=== PATIENT | female | born 1990 | race Caucasian/White ===

== ENCOUNTER 2017-11-30 22:33 | Emergency (ER) | payer BC, OTHER ==
[2017-12-01 01:08] LABS: Absolute Lymphocytes (CBC) 3.1 K/uL (0.7-4.9); Absolute Monocytes 0.6 K/uL (0.1-1.3); Absolute Neutrophil 4.6 K/uL (1.8-8.0); Basophils % 0.5 % (0-1.3); Eosinophils % 3.2 % (0-4.4); Hematocrit 43.8 % (36.0-45.0); Lymphocytes % 36.2 % (15.3-44.8); MCH 27.3 pg (27.0-35.0); MCV 83.9 fL (80-100); MPV 10.7 fL (7.6-11.3); Monocytes % 6.5 % (3.3-12.3); RBC Red Blood Cell Count 5.21 M/uL (3.86-4.86)
[2017-12-01 01:16] LABS: Potassium 3.7 mEq/L (3.6-5.0)
[2017-12-01 01:22] LABS: Albumin 4.1 g/dL (3.2-5.5); Bilirubin Direct 0.1 mg/dL (0-0.2); Bilirubin Total 1.3 mg/dL (0.3-1.2); Protein, Total 7.3 g/dL (6.0-8.3)
--- NOTE | 2017-12-01 01:32 | EDPHYS ---
Physician Documentation [facility] Name: Ruperto Pike Age: 27 yrs Sex: Female : 1990 Arrival Date: 11/30/2017 Time: 22:34 Bed 25 Private MD: ED Physician Chema Holman HPI: 12/01 00:07 This 27 yrs old Female presents to ER via Ambulatory with complaints of pkl Abdominal Cramping, Abdominal Pain. 00:07 The patient presents with abdominal pain in the epigastric area. Onset: The pkl symptoms/episode began/occurred yesterday. The symptoms do not radiate. Associated signs and symptoms: none. 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 - Social history:: Smoking status: Smoking status: Patient/guardian denies using tobacco, Patient/guardian denies using alcohol, street drugs. ROS: 12/01 00:07 Eyes: Negative for injury, pain, redness, and discharge, ENT: Negative for injury, pkl pain, and discharge, Neck: Negative for injury, pain, and swelling, Cardiovascular: Negative for chest pain, palpitations, and edema, Respiratory: Negative for shortness of breath, cough, wheezing, and pleuritic chest pain. Abdomen/GI: Positive for abdominal pain, of the epigastric area. Back: Negative for acute changes. : Negative for urinary symptoms. MS/extremity: Negative for acute changes. Skin: Negative for rash. Neuro: Negative for altered mental status. Exam: 00:07 Head/Face: Normocephalic, atraumatic. Eyes: Pupils equal round and reactive to light, pkl extra-ocular motions intact. Lids and lashes normal. Conjunctiva and sclera are non-icteric and not injected. Cornea within normal limits. Periorbital areas with no swelling, redness, or edema. ENT: Nares patent. No nasal discharge, no septal abnormalities noted. Tympanic membranes are normal and external auditory canals are clear. Oropharynx with no redness, swelling, or masses, exudates, or evidence of obstruction, uvula midline. Mucous membranes moist. Neck: Trachea midline, no thyromegaly or masses palpated, and no cervical lymphadenopathy. Supple, full range of motion without nuchal rigidity, or vertebral point tenderness. No Meningismus. Chest/axilla: Normal chest wall appearance and motion. Nontender with no deformity. No lesions are appreciated. Cardiovascular: Regular rate and rhythm with a normal S1 and S2. No gallops, murmurs, or rubs. Normal PMI, no JVD. No pulse deficits. Respiratory: Lungs have equal breath sounds bilaterally, clear to auscultation and percussion. No rales, rhonchi or wheezes noted. No increased work of breathing, no retractions or nasal flaring. 00:07 Abdomen/GI: Bowel sounds: normal, Palpation: soft, mild abdominal tenderness, in the epigastric area. 00:07 Back: Exam negative for acute changes. 00:07 : Exam negative for acute changes. 00:07 Musculoskeletal/extremity: Exam is negative for acute changes. 00:07 Skin: Exam negative for rash. 00:07 Neuro: Orientation: is normal, Mentation: is normal, Cranial nerves: grossly normal, Motor: is normal. Vital Signs: 11/30 23:24 BP 133 / 86; Pulse 64; Resp 18 S; Temp 98.8(TE); Pulse Ox 99% on R/A; Weight 86.18 kg bb (R); Height 5 ft. 1 in. (154.94 cm) (R); Pain 8/10; 12/01 01:58 BP 125 / 68; Pulse 52; Resp 18; Pulse Ox 100% ; tl3 11/30 23:24 Body Mass Index 35.90 (86.18 kg, 154.94 cm) bb MDM: 00:00 Patient medically screened. pkl 01:30 Data reviewed: vital signs, nurses notes, lab test result(s). pkl 01:32 ED course: Patient feeling. Asymptomatic. Discussed lab. results. Advised to follow up pkl with mutton puncher for further evaluations. 12/01 00:06 Order name: Amylase, Serum; Complete Time: 01:26 pkl 12/01 00:06 Order name: Basic Metabolic Panel; Complete Time: : pkl 12/01 00:06 Order name: CBC with Diff; Complete Time: pkl 04/02 00:06 Order name: Creatinine for Radiology; Complete Time: pkl 12/01 00:06 Order name: Hepatic Function; Complete Time: pkl 12/01 00:06 Order name: Lipase; Complete Time: pkl 12/01 00:06 Order name: Urine Microscopic Only pkl 12/01 00:06 Order name: IV Saline Lock pkl 12/01 00:06 Order name: Labs collected and sent pkl 12/01 00:06 Order name: Urine Dipstick-Ancillary (obtain specimen) pkl 12/01 01:37 Order name: Urine Dipstick--Ancillary (enter results) rg2 12/01 01:37 Order name: Urine --Ancillary (enter results) rg2 Administered Medications: 02:01 Not Given (pt discharged prior to seeing order): NS 0.9% 500 ml IV at bolus once tl3 Disposition: 12/01/17 01:31 Discharged to Home. Impression: Abdominal pain. Elevated liver functions. - Condition is Stable. - Prescriptions for Ultram 50 mg Oral Tablet - take 1 tablet by ORAL route every 8 hours As needed; 20 tablet. - Medication Reconciliation Form, Thank You Letter, Antibiotic Education, Prescription Opioid Use form. - Follow up: Kat Borges MD; When: 2 - 3 days; Reason: Re-evaluation by your physician. - Problem is new. - Symptoms are resolved. Signatures: Dispatcher [employer] Chema Juares MD MD pkJojo Clement RN RN bb Lowrey, Tammy, RN RN tl3
--- NOTE | 2017-12-01 01:32 | ER ---
Nurse's Notes [facility] Name: Ruperto Pike Age: 27 yrs Sex: Female : 1990 Arrival Date: 11/30/2017 Time: 22:34 Bed 25 Private MD: Diagnosis: Abdominal pain. Elevated liver functions Presentation: 11/30 23:22 Presenting complaint: Patient states: she started having upper abdominal pain since bb yesterday pain is constant has nausea but denies vomiting or diarrhea pt is 4 weeks post . Transition of care: patient was not received from another setting of care. Onset of symptoms was November 29, 2017. Care prior to arrival: None. 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 - Social history:: Smoking status: Smoking status: Patient/guardian denies using tobacco, Patient/guardian denies using alcohol, street drugs. Screenin:59 Abuse screen: Denies threats or abuse. Nutritional screening: No deficits noted. tl3 Tuberculosis screening: No symptoms or risk factors identified. Fall Risk None identified. Assessment: 23:59 General: Appears in no apparent distress. comfortable, well groomed, well developed, tl3 well nourished, Behavior is calm, cooperative, appropriate for age. Pain: Complains of pain in abdomen. Neuro: Level of Consciousness is awake, alert, obeys commands, Oriented to person, place, time, situation, Appropriate for age. Cardiovascular: Heart tones S1 S2 present Capillary refill < 3 seconds in bilateral fingers. Respiratory: Airway is patent Trachea midline Breath sounds are clear bilaterally. GI: Bowel sounds present X 4 quads. Abdomen is tender to palpation in right upper quadrant and left upper quadrant. : No signs and/or symptoms were reported regarding the genitourinary system. EENT: No signs and/or symptoms were reported regarding the EENT system. Derm: No signs and/or symptoms reported regarding the dermatologic system. Musculoskeletal: No signs and/or symptoms reported regarding the musculoskeletal system. 12/01 00:01 Reassessment: pt is four weeks postpardum. tl3 01:32 Reassessment: Patient appears in no apparent distress at this time. No changes from tl3 previously documented assessment. Patient and/or family updated on plan of care and expected duration. Pain level reassessed. Patient is alert, oriented x 3, equal unlabored respirations, skin warm/dry/pink. pt resting in bed, Dr Holman discussing POC. Vital Signs: 11/30 23:24 BP 133 / 86; Pulse 64; Resp 18 S; Temp 98.8(TE); Pulse Ox 99% on R/A; Weight 86.18 kg bb (R); Height 5 ft. 1 in. (154.94 cm) (R); Pain 8/10; 12/01 01:58 BP 125 / 68; Pulse 52; Resp 18; Pulse Ox 100% ; tl3 04 23:24 Body Mass Index 35.90 (86.18 kg, 154.94 cm) bb ED Course: 11/30 22:34 Patient arrived in ED. am2 23:23 Triage completed. bb 23:24 Arm band placed on left wrist. Patient placed in waiting room, Patient notified of wait bb time. 23:59 Rochelle Bolden, BALDEMAR is Primary Nurse. tl3 23:59 Patient has correct armband on for positive identification. tl3 23:59 No provider procedures requiring assistance completed. tl3 04 00:00 Chema Holman MD is Attending Physician. pkl 01:30 Kat Borges MD is Referral Physician. pkl 01:30 IV discontinued, intact, bleeding controlled, No redness/swelling at site. Pressure tl3 dressing applied. Administered Medications: 02:01 Not Given (pt discharged prior to seeing order): NS 0.9% 500 ml IV at bolus once tl3 Outcome: 01:31 Discharge ordered by . pkl 01:59 Discharged to home ambulatory. tl3 01:59 Condition: good 01:59 Discharge instructions given to patient, Instructed on discharge instructions, follow up and referral plans. medication usage, Demonstrated understanding of instructions, follow-up care, medications, Prescriptions given X 1. 02:03 Patient left the ED. tl3 Signatures: Chema Holman MD MD pkl Ballard, Brenda, RN RN Jaylyn Gamble am2 Rochelle Bolden, RN RN tl3
[2017-12-01 03:42] LABS: Urine Blood NEGATIVE (NEG); Urine Glucose NEGATIVE (NEG); Urine Protein NEGATIVE (NEG); Urine pH 5.5 (5.0-7.0)
[2017-12-01 03:45] LABS: Urine Bacteria <20 /HPF (<20); Urine Culture Reflex Order NOT NEEDED; Urine RBC <5 /HPF (NONE SEEN)
== END 2017-12-01 02:03 | disposition home or self-care (01) ==
LOC: ER 22:33
DX: R79.89 Other specified abnormal findings of blood chemistry (principal)
CPT/HCPCS: 36415; 80048; 80076; 81003; 81015; 81025; 82150; 83690; 85025; 99282

== ENCOUNTER 2017-12-02 01:06 | Observation (INO) | payer BC ==
[2017-12-02] MEDS ORDERED: ONDANSETRON 4 MG/2 ML VIAL ONE (01:56)
[2017-12-02] MEDS ORDERED: MEPERIDINE HCL 50 MG/ML AMP ONE (01:56)
[2017-12-02] MEDS ORDERED: NA CHLORIDE 0.9% 1,000 ML ONE (01:56)
[2017-12-02 02:04] LABS: Absolute Lymphocytes (CBC) 3.9 K/uL (0.7-4.9); Absolute Monocytes 0.5 K/uL (0.1-1.3); Absolute Neutrophil 3.4 K/uL (1.8-8.0); Basophils % 0.6 % (0-1.3); Hematocrit 45.7 % (36.0-45.0); Lymphocytes % 47.6 % (15.3-44.8); MCH 27.9 pg (27.0-35.0); MCV 83.3 fL (80-100); MPV 10.7 fL (7.6-11.3); Monocytes % 6.6 % (3.3-12.3); RBC Red Blood Cell Count 5.48 M/uL (3.86-4.86)
[2017-12-02 02:11] LABS: Bicarbonate 26 mEq/L (21-31); Glucose Level 95 mg/dL (65-120); Lipase 29 U/L (22-51); Potassium 3.9 mEq/L (3.6-5.0); Sodium Level 137 mEq/L (135-145)
[2017-12-02 02:17] LABS: ALT/SGPT 110 IU/L (10-60); AST/SGOT 58 IU/L (10-42); Albumin 4.3 g/dL (3.2-5.5); Alkaline Phosphatase 83 IU/L (42-121); Amylase Level 57 U/L (28-100); BUN Blood Urea Nitrogen 14 mg/dL (6-20); Bilirubin Direct 0.2 mg/dL (0-0.2); Bilirubin Total 1.1 mg/dL (0.3-1.2); Glomerular Filtration Rate > 90 mL/min (=/>90); Protein, Total 7.7 g/dL (6.0-8.3)
[2017-12-02] MEDS ORDERED: MORPHINE 4 MG/ML SYR ONE (02:42)
[2017-12-02 04:14] LABS: Urine Bacteria <20 /HPF (<20); Urine RBC NONE SEEN /HPF (NONE SEEN)
[2017-12-02 04:15] LABS: Urine Culture Reflex Order NOT NEEDED
--- NOTE | 2017-12-02 04:39 | EDPHYS ---
Physician Documentation [facility] Name: Ruperto Pike Age: 27 yrs Sex: Female : 1990 Arrival Date: 12/02/2017 Time: 01:06 Bed 13 Private MD: ED Physician Chema Holman HPI: 12/02 01:46 This 27 yrs old Female presents to ER via Ambulatory with complaints of pkl Abdominal Pain. 01:46 The patient presents with abdominal pain in the right upper quadrant. Onset: The pkl symptoms/episode began/occurred 2 day(s) ago. The symptoms do not radiate. Associated signs and symptoms: Pertinent positives: nausea. The patient has been recently seen at the [facility] Emergency Department, yesterday, for similar complaints. 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 - Social history:: Smoking status: Patient uses tobacco products, 2-3 cigs a day, Patient uses alcohol, occasionally. Patient/guardian denies using street drugs. ROS: 01:46 Eyes: Negative for injury, pain, redness, and discharge, ENT: Negative for injury, pkl pain, and discharge, Neck: Negative for injury, pain, and swelling, Cardiovascular: Negative for chest pain, palpitations, and edema, Respiratory: Negative for shortness of breath, cough, wheezing, and pleuritic chest pain. 01:46 Abdomen/GI: Positive for abdominal pain, of the right upper quadrant. 01:46 Back: Negative for acute changes. 01:46 : Negative for urinary symptoms. 01:46 MS/extremity: Negative for acute changes. 01:46 Skin: Negative for rash. 01:46 Neuro: Negative for altered mental status. Exam: 01:46 Head/Face: Normocephalic, atraumatic. Eyes: Pupils equal round and reactive to light, pkl extra-ocular motions intact. Lids and lashes normal. Conjunctiva and sclera are non-icteric and not injected. Cornea within normal limits. Periorbital areas with no swelling, redness, or edema. ENT: Nares patent. No nasal discharge, no septal abnormalities noted. Tympanic membranes are normal and external auditory canals are clear. Oropharynx with no redness, swelling, or masses, exudates, or evidence of obstruction, uvula midline. Mucous membranes moist. Neck: Trachea midline, no thyromegaly or masses palpated, and no cervical lymphadenopathy. Supple, full range of motion without nuchal rigidity, or vertebral point tenderness. No Meningismus. Chest/axilla: Normal chest wall appearance and motion. Nontender with no deformity. No lesions are appreciated. Cardiovascular: Regular rate and rhythm with a normal S1 and S2. No gallops, murmurs, or rubs. Normal PMI, no JVD. No pulse deficits. Respiratory: Lungs have equal breath sounds bilaterally, clear to auscultation and percussion. No rales, rhonchi or wheezes noted. No increased work of breathing, no retractions or nasal flaring. 01:46 Abdomen/GI: Bowel sounds: normal, Palpation: soft, mild abdominal tenderness, in the right upper quadrant. 01:46 Back: Exam negative for acute changes. 01:46 : Exam negative for acute changes. 01:46 Musculoskeletal/extremity: Exam is negative for acute changes. 01:46 Skin: Exam negative for rash. 01:46 Neuro: Orientation: is normal, Mentation: is normal, Memory: is normal, Cranial nerves: grossly normal, Cerebellar function: is grossly normal, Motor: is normal, Sensation: is normal, Gait: is steady. Vital Signs: 01:10 BP 147 / 107; Pulse 80; Resp 18; Temp 99.0(O); Pulse Ox 100% on R/A; Weight 86.18 kg fc (R); Height 5 ft. 1 in. (154.94 cm) (R); Pain 10/10; 02:26 BP 134 / 89; Pulse 58; Resp 18; Pulse Ox 97% on R/A; ao 03:38 BP 121 / 88; Pulse 66; Resp 16; Pulse Ox 99% on R/A; Pain 6/10; mt 05:07 BP 120 / 81; Pulse 62; Resp 16; Pulse Ox 99% on R/A; mt 06:28 BP 115 / 84; Pulse 62; Resp 18; Pulse Ox 97% on R/A; mt 07:15 BP 98 / 54; Pulse 54; Resp 17; Pulse Ox 98% on R/A; Pain 0/10; rb1 01:10 Body Mass Index 35.90 (86.18 kg, 154.94 cm) fc MDM: 01:31 Patient medically screened. pkl 04:36 Data reviewed: vital signs, nurses notes, lab test result(s), radiologic studies, CT pkl scan. 12/02 01:28 Order name: Urine Microscopic Only; Complete Time: 06:58 em1 12/02 01:57 Order name: Basic Metabolic Panel; Complete Time: 02:32 EDMS 12/02 01:57 Order name: Liver (Hepatic) Function; Complete Time: 02:32 EDMS 12/02 01:57 Order name: Amylase Level; Complete Time: 02:32 EDMS 12/02 01:57 Order name: Lipase; Complete Time: 02:32 EDMS 12/02 01:57 Order name: CBC with Automated Diff; Complete Time: 02:07 EDMS 12/02 04:25 Order name: Urine Dipstick--Ancillary (enter results); Complete Time: 06:58 em1 12/02 01:28 Order name: IV Saline Lock; Complete Time: 01:30 em1 12/02 01:28 Order name: Labs collected and sent; Complete Time: 01:30 em1 12/02 01:28 Order name: Urine Dipstick-Ancillary (obtain specimen); Complete Time: 03:44 em1 12/02 02:10 Order name: Abdomen EDMS Administered Medications: 01:45 Drug: NS 0.9% 1000 ml Route: IV; Rate: 1000 ml; Site: left antecubital; fc 06:56 Follow up: IV Status: Completed infusion ao 01:45 Drug: Demerol 50 mg Route: IVP; Site: left antecubital; fc 02:25 Follow up: Response: No adverse reaction ao 01:45 Drug: Zofran 4 mg Route: IVP; Site: left antecubital; fc 02:24 Follow up: Response: No adverse reaction ao 02:24 Drug: morphine 4 mg Route: IVP; Site: left antecubital; ao 03:43 Follow up: Response: No adverse reaction ao Disposition: 12/02/17 04:38 Hospitalization ordered by Anuradha Haile for Observation. Preliminary diagnosis is Acute cholecystitis. Elevated liver functions. - Bed requested for Telemetry/MedSurg (observation). - Status is Observation. rb1 - Condition is Stable. - Problem is new. - Symptoms have improved. UTI on Admission? No Signatures: Dispatcher [employer] EDMS Yola Guerrero, RN RN Chema Pedro MD MD pkl Chretien, Felicia, RN RN Donnell Muhammad em1 Narcisa Saini RN RN rb1 Vidal Malik RN RN ao Corrections: (The following items were deleted from the chart) 02:05 01:57 Creatinine (Radiology Only) ordered. EDMS EDMS 02:56 02:28 Abdomen Pelvis W Con+CT.RAD.BRZ ordered. EDMS EDMS 03:10 02:28 AMYLASE, SERUM+C.LAB.BRZ ordered. EDMS EDMS 03:10 02:28 BASIC METABOLIC PANEL+C.LAB.BRZ ordered. EDMS EDMS 03:10 02:28 CBC+H.LAB.BRZ ordered. EDMS EDMS 03:10 02:28 Creatinine for Radiology+C.LAB.BRZ ordered. EDMS EDMS 03:10 02:28 HEPATIC FUNCTION+C.LAB.BRZ ordered. EDMS EDMS 03:10 02:28 LIPASE+C.LAB.BRZ ordered. EDMS EDMS
--- NOTE | 2017-12-02 04:39 | ER ---
Nurse's Notes [facility] Name: Ruperto Pike Age: 27 yrs Sex: Female : 1990 Arrival Date: 12/02/2017 Time: 01:06 Bed 13 Private MD: Diagnosis: Acute cholecystitis. Elevated liver functions Presentation: 12/02 01:10 Acuity: VICKI 3 fc 01:10 Presenting complaint: Patient states: that she was seen last night for abd pain and was fc told that she might high gallstones. Did have elevated liver enz and was told to follow up with GI dr. Went home with no pain but is now having severe upper right quad abd pain and nausea. Transition of care: patient was not received from another setting of care. Onset of symptoms was December 02, 2017. Care prior to arrival: None. 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 - Social history:: Smoking status: Patient uses tobacco products, 2-3 cigs a day, Patient uses alcohol, occasionally. Patient/guardian denies using street drugs. Screenin:30 Abuse screen: Denies threats or abuse. Nutritional screening: No deficits noted. fc Tuberculosis screening: No symptoms or risk factors identified. Fall Risk None identified. Assessment: 01:35 General: Appears in no apparent distress. uncomfortable, Behavior is calm, cooperative, ao appropriate for age. Pain: Complains of pain in abdomen. Neuro: Level of Consciousness is awake, alert, obeys commands, Oriented to person, place, time, situation, Appropriate for age Moves all extremities. Gait is steady, Speech is normal, Facial symmetry appears normal, Pupils are PERRLA. Cardiovascular: Heart tones S1 S2 Capillary refill < 3 seconds Patient's skin is warm and dry. Respiratory: Airway is patent Respiratory effort is even, unlabored, Respiratory pattern is regular, symmetrical, Breath sounds are clear bilaterally. GI: Bowel sounds present X 4 quads. Abd is soft and non tender X 4 quads. Reports nausea, Pain is 8 out of 10 on a pain scale. vomiting. : No signs and/or symptoms were reported regarding the genitourinary system. EENT: No signs and/or symptoms were reported regarding the EENT system. Derm: No signs and/or symptoms reported regarding the dermatologic system. Musculoskeletal: No signs and/or symptoms reported regarding the musculoskeletal system. 02:16 Reassessment: Patient appears in no apparent distress at this time. Patient and/or ao family updated on plan of care and expected duration. Pain level reassessed. Patient is alert, oriented x 3, equal unlabored respirations, skin warm/dry/pink. 03:41 Reassessment: Patient appears in no apparent distress at this time. Patient and/or ao family updated on plan of care and expected duration. Pain level reassessed. Patient is alert, oriented x 3, equal unlabored respirations, skin warm/dry/pink. Waiting on dispo. 04:27 Reassessment: Patient appears in no apparent distress at this time. Patient and/or ao family updated on plan of care and expected duration. Pain level reassessed. Patient is alert, oriented x 3, equal unlabored respirations, skin warm/dry/pink. 05:44 Reassessment: Patient appears in no apparent distress at this time. Patient and/or ao family updated on plan of care and expected duration. Pain level reassessed. Patient is alert, oriented x 3, equal unlabored respirations, skin warm/dry/pink. Patient to be admitted to the hospital. patient agree with POC. 06:45 Reassessment: Patient appears in no apparent distress at this time. Patient and/or ao family updated on plan of care and expected duration. Pain level reassessed. Patient is alert, oriented x 3, equal unlabored respirations, skin warm/dry/pink. Patient to be taken to her room. Patient was not able to go to her room due to shift change. Patient will be taken to a hospital room after shift change. 07:00 General: Appears in no apparent distress. comfortable, Behavior is calm, cooperative. rb1 Pain: Denies pain. Neuro: Level of Consciousness is awake, alert, obeys commands, Oriented to person, place, time, situation. Cardiovascular: Capillary refill < 3 seconds is brisk in bilateral fingers. Respiratory: Airway is patent Respiratory effort is even, unlabored, Respiratory pattern is regular, symmetrical. Derm: Skin is pink, warm \T\ dry. 07:30 Reassessment: Called 4th floor to give report, was told that the nurse was still rb1 getting report from the night nurse to call back in about 10 minutes. 07:40 Reassessment: Called report to BALDEMAR Bey. Information on the SBAR was given. All rb1 questions asked and answered. Vital Signs: 01:10 BP 147 / 107; Pulse 80; Resp 18; Temp 99.0(O); Pulse Ox 100% on R/A; Weight 86.18 kg fc (R); Height 5 ft. 1 in. (154.94 cm) (R); Pain 10/10; 02:26 BP 134 / 89; Pulse 58; Resp 18; Pulse Ox 97% on R/A; ao 03:38 BP 121 / 88; Pulse 66; Resp 16; Pulse Ox 99% on R/A; Pain 6/10; mt 05:07 BP 120 / 81; Pulse 62; Resp 16; Pulse Ox 99% on R/A; mt 06:28 BP 115 / 84; Pulse 62; Resp 18; Pulse Ox 97% on R/A; mt 07:15 BP 98 / 54; Pulse 54; Resp 17; Pulse Ox 98% on R/A; Pain 0/10; rb1 01:10 Body Mass Index 35.90 (86.18 kg, 154.94 cm) fc ED Course: 01:06 Patient arrived in ED. al2 01:10 Arm band placed on Patient placed in an exam room, on a stretcher. fc 01:10 Patient has correct armband on for positive identification. Placed in gown. Bed in low fc position. Call light in reach. Pulse ox on. NIBP on. 01:20 Initial lab(s) drawn, by me, sent to lab. Inserted saline lock: 22 gauge in left fc antecubital area, using aseptic technique. Blood collected. 01:29 Triage completed. fc 01:31 Chema Holman MD is Attending Physician. pkl 01:36 Vidal Malik RN is Primary Nurse. ao 03:03 Abdomen In Process Unspecified. EDMS 04:36 Anuradha Haile MD is Hospitalizing Provider. pkl 07:06 Report given to BALDEMAR Brewster. ao 07:09 Narcisa Saini RN is Primary Nurse. rb1 07:48 No provider procedures requiring assistance completed. Patient admitted, IV remains in rb1 place. Administered Medications: 01:45 Drug: NS 0.9% 1000 ml Route: IV; Rate: 1000 ml; Site: left antecubital; fc 06:56 Follow up: IV Status: Completed infusion ao 01:45 Drug: Demerol 50 mg Route: IVP; Site: left antecubital; fc 02:25 Follow up: Response: No adverse reaction ao 01:45 Drug: Zofran 4 mg Route: IVP; Site: left antecubital; fc 02:24 Follow up: Response: No adverse reaction ao 02:24 Drug: morphine 4 mg Route: IVP; Site: left antecubital; ao 03:43 Follow up: Response: No adverse reaction ao Outcome: 04:38 Decision to Hospitalize by Provider. pkl 07:48 Patient left the ED. rb1 07:48 Admitted to Tele accompanied by nurse, family with patient, via wheelchair, room 407, rb1 with chart, Report called to BALDEMAR Bey 07:48 Condition: stable 07:48 Instructed on the need for admit. Signatures: Dispatcher [employer] EDMS Chema Holman MD MD pkl Tess Haywood RN RN Narcisa Saini RN RN [facility] Vidal Malik RN RN ao Thompson, Moriah mt Love, Angelica al2 Corrections: (The following items were deleted from the chart) 08:11 08:10 Patient left the ED. rb1 rb1
[2017-12-02 05:07] LABS: Urine Blood TRACE (NEG); Urine Glucose NEGATIVE (NEG); Urine Protein NEGATIVE (NEG); Urine Specific Gravity 1.015 (1.005-1.030)
--- NOTE | 2017-12-02 05:11 | P.HP ---
Certification for Inpatient Patient admitted to: Observation With expected LOS: <2 Midnights Practitioner: I am a practitioner with admitting privileges, knowledge of patient current condition, hospital course, and medical plan of care. Services: Services provided to patient in accordance with Admission requirements found in Title 42 Section 412.3 of the Code of Federal Regulations Patient History Date of Service: 12/02/17 Reason for admission: acute cholecystitis History of Present Illness: Ms Pike is a 27 years old woman who just delivery a baby 4 weeks ago, came to ED yesterday morning complaining of right upper quadrant abdominal pain. She describe the pain as colicky, comes and go, 10/10 of intensity, denied nausea or vomiting, no fever. WBC were WNL, but abnormal transaminases, afebrile, and she was sent home advised to see a GI specialist as outpatient. However, early this morning, the pain came back, associated with nausea, and is radiated to her back. She is still afebrile, WBC remain normal. At this time, she had a CT abd/pelvis remarkable for distended gallblader and pericholecystic fluid. No stones or distended ducts. Transaminases remain elevated. Allergies No Known Drug Allergies Allergy (Unverified 05/12/15 05:51) Unknown No Known Allergies Allergy (Uncoded 12/01/17 02:06) Unknown - Past Medical/Surgical History Past Medical History: Reviewed- Non-Contributory Past Surgical History: Reviewed- Non-Contributory - Social History Smoking Status: Light Tobacco smoker (1-9 cigarettes/day) Counseled patient to stop smoking for: less than 10 minutes Alcohol use: No CD- Drugs: No Caffeine use: Yes Place of Residence: Home Review of Systems 10-point ROS is otherwise unremarkable Physical Examination - Physical Exam General: Alert, Mild distress (due to abdominal pain.) HEENT: Atraumatic, PERRLA, Mucous membr. moist/pink, EOMI, Sclerae nonicteric Neck: Supple, 2+ carotid pulse no bruit, No LAD, Without JVD or thyroid abnormality Respiratory: Clear to auscultation bilaterally, Normal air movement Cardiovascular: Regular rate/rhythm, Normal S1 S2 Gastrointestinal: Normal bowel sounds, Tenderness (RUQ) Musculoskeletal: No tenderness Integumentary: No rashes Neurological: Normal speech, Normal strength at 5/5 x4 extr, Normal tone, Normal affect Lymphatics: No axilla or inguinal lymphadenopathy - Studies Laboratory Data (last 24 hrs) 12/02/17 01:30: Creatinine Cancelled 12/02/17 01:30: WBC 8.1, Hgb 15.3 H, Hct 45.7 H, Plt Count 220 12/02/17 01:30: Sodium 137, Potassium 3.9, BUN 14, Creatinine 0.75, Glucose 95, Total Bilirubin 1.1, AST 58 H, ALT 110 H, Alkaline Phosphatase 83, Amylase 57, Lipase 29 12/02/17 01:28: Creatinine Cancelled 12/02/17 01:28: WBC Cancelled, Hgb Cancelled, Hct Cancelled, Plt Count Cancelled 12/02/17 01:28: Sodium Cancelled, Potassium Cancelled, BUN Cancelled, Creatinine Cancelled, Glucose Cancelled, Total Bilirubin Cancelled, AST Cancelled, ALT Cancelled, Alkaline Phosphatase Cancelled, Amylase Cancelled, Lipase Cancelled Assessment and Plan - Problems (Diagnosis) (1) Acute cholecystitis Current Visit: Yes Status: Acute - Plan The patient will be admitted to the hospital due to acute cholecysitis. No gallstones noted on CT scan. Will order Abd US for better assessment, start empiric IV abx, consult Dr Jean, eventually will get GI specialist involved , depending on US result. Keep NPO. - Advance Directives Does patient have a Living Will: No Does patient have a Durable POA for Healthcare: No - Code Status/Comfort Care Code Status Assessed: Yes Code Status: Full Code
[2017-12-02] MEDS ORDERED: ACETAMINOPHEN 500 MG TAB PO PRN (07:40)
[2017-12-02] MEDS ORDERED: ONDANSETRON 4 MG/2 ML VIAL IV PRN (07:40)
--- NOTE | 2017-12-02 08:45 | RAD REPORT ---
EXAM DESCRIPTION: CT - Abdomen Pelvis W Contrast - 12/02/2017 3:03 am CLINICAL HISTORY: Abdominal pain with nausea. Right upper quadrant pain COMPARISON: 2013 TECHNIQUE: Computed axial tomography of the abdomen pelvis was obtained. 100 cc Isovue-300 was admin istered intravenously. Oral contrast was not requested which limits evaluation of bowel.A preliminary report was generated by [employer] and reviewed prior to this dictation All CT scans are performed using dose optimization technique as appropriate and may include automated exposure control or mA/KV adjustment according to patient size. FINDINGS: The liver, spleen, pancreas, adrenal and kidneys appear unremarkable. There is no evidence of diverticulitis. The appendix appears normal. The gallbladder is distended with a small amount of pericholecystic fluid. Gallstones are suspected. The stomach is mildly distended IMPRESSION: Cholelithiasis with acute cholecystitis
--- NOTE | 2017-12-02 09:46 | RAD REPORT ---
EXAM DESCRIPTION: US - Abdomen Exam Limited - 12/02/2017 8:30 am CLINICAL HISTORY: Abdominal pain. COMPARISON: Cat scan December 02 2017 FINDINGS: Multiple gallstones are present. The gallbladder wall is mildly thickened. Pericholecystic fluid is seen. The biliary tree is normal caliber. IMPRESSION: Cholelithiasis with cholecystitis
[2017-12-02] MEDS: NA CHLORIDE 0.9% 1,000 ML IV SCH ×2 (09:53→16:40)
[2017-12-02] MEDS: PIPER/TAZO/NS 3.375gm 3.375 GM/100 ML BAG IVPB SCH ×2 (09:57→16:40)
--- NOTE | 2017-12-02 16:43 | PN ---
Subjective: The patient seen and examined. Chart reviewed and case discussed with RN. The patient states that she is having some pain in her right upper quadrant. No nausea or vomiting. Review of Systems: Negative except as above. Medications: Reviewed. Physical Examination: Vital signs: Temperature 97.6, heart rate 62, blood pressure 154/60, respirations 17, O2 saturation 94% on room air. General: Awake, alert, oriented x3, in some mild distress due to pain. Obese female, BMI 35.9. CV: S1 and S2. No murmurs. Respiratory: Moving air well bilaterally. No wheezing. Abdomen: Soft, mild tenderness to palpation in the right upper quadrant. No rebound. No guarding. No rigidity. Bowel sounds positive. Extremities: No clubbing, cyanosis, or edema. Neuro: Nonfocal. Laboratory Data: Sodium 137, potassium 3.9, chloride 103, CO2 of 26, BUN 14, creatinine is 0.75, glu cose 95, total bilirubin 1.1, AST 58, ALT 110, amylase 57, lipase 29. WBC 8.1, H and H 15.3 and 45.7 , neutrophils 42.2. UA negative. Abdominal ultrasound shows cholelithiasis with cholecystitis. CT scan abdomen and pelvis with contrast shows cholelithiasis with acute cholecystitis personally review ed. Assessment And Plan: A 27-year-old female with; 1.Acute cholecystitis. We will continue on IV antibiotics and IV fluids, keep n.p.o., Dr. Jean on the case and the patient may need eventual cholecystectomy. 2.Obesity. Body mass index 35.9. 3.Elevated liver enzymes, likely fatty infiltration. 4.Gastrointestinal and deep venous thrombosis prophylaxis with PPI and SCDs. No chemical anticoagul ation due to possible surgery. SA/MODL Voice ID: [id number] Report ID: [id number]
--- NOTE | 2017-12-02 18:59 | RAD REPORT ---
EXAM DESCRIPTION: MRI - Cholangiogram - 12/02/2017 5:50 pm CLINICAL HISTORY: Elevated liver enzymes, abdominal pain COMPARISON: Ultrasound and CT studies December 02 FINDINGS: Large gallstone is identified. Cholecystitis findings were seen on the ultrasound and CT s tudy. No biliary tree dilatation. No duct stone, stricture, mass or significant biliary tree process. IMPRESSION: No biliary tree abnormality. Cholelithiasis.
--- NOTE | 2017-12-02 19:25 | CON ---
Date of Consultation: 12/02/2017 Reason For Service: Acute cholecystitis, symptomatic cholelithiasis, increased liver enzymes. History Of Present Illness: This is the case of a 27-year-old patient, troubled with abdominal pain since last night associated with nausea and bloating. She does remember any pain like this before. She does not remember any family member sick at home or any recent traveling out of the country. She denies any dysuria, hematuria, hematochezia, or melena. Allergies: NONE. Social History: She does not smoke. She does not drink alcohol. Past Medical History: None. She delivered a baby about 4 weeks ago with no complications and natura l vaginal delivery. Review of Systems: Constitutional: Denies any fever. Gastrointestinal: As above. Genitourinary: No dysuria. No hematuria. Skin: No ration. Physical Examination: General: The patient is awake and alert. HEENT: Pupils are equal and reactive, anicteric. Neck: Supple. Chest: Clear. Abdomen: Epigastric right upper quadrant pain with Lamar sign positive. Breasts: Deferred. Rectal: Deferred. Pelvic: Deferred. Extremities: Good capillary refill. Neuro: Cranial nerves 2-12 within grossly normal limits. Diagnostic Data: Abdominal ultrasound interpreted by Dr. Talavera as cholelithiasis with cholecystiti s with a gallbladder wall thickening and pericholecystic fluid, multiple gallstones. CAT scan of abd omen and pelvis, interpreted by Dr. Talavera as cholelithiasis with acute cholecystitis. Laboratory Data: Blood work is reviewed including elevated liver enzymes. Assessment: This is a case of a 27-year-old patient with acute cholecystitis, symptomatic cholelithi asis, and increased liver enzymes. We are going to get an MRCP on her to see the status of the commo n bile duct. This will be followed by laparoscopic possible open cholecystectomy with benefits, alte rnatives, and risks fully explained to the patient, which include but are not limited to infection, b leeding, damage to adjacent structures, anesthesia complication, choledocholithiasis, bile leak, panc reatitis, ME, and even . She also understands this may not relieve any symptoms. She might nee d more than one surgical intervention. This procedure will be depending on the MRCP results. ALEXA/FALLON Voice ID: [id number] Report ID: [id number]
[2017-12-02] MEDS: KETOROLAC 30 MG/ML INJ IV PRN (21:16)
[2017-12-03] MEDS: PIPER/TAZO/NS 3.375gm 3.375 GM/100 ML BAG IVPB SCH ×3 (00:39→16:42)
[2017-12-03] MEDS: NA CHLORIDE 0.9% 1,000 ML IV SCH ×3 (03:40→21:31)
[2017-12-03 05:01] LABS: Absolute Lymphocytes (CBC) 2.6 K/uL (0.7-4.9); Absolute Monocytes 0.4 K/uL (0.1-1.3); Absolute Neutrophil 2.9 K/uL (1.8-8.0); Basophils % 0.7 % (0-1.3); Eosinophils % 3.3 % (0-4.4); Hematocrit 39.4 % (36.0-45.0); Lymphocytes % 42.5 % (15.3-44.8); MCH 27.3 pg (27.0-35.0); MCV 83.9 fL (80-100); MPV 10.5 fL (7.6-11.3); RBC Red Blood Cell Count 4.69 M/uL (3.86-4.86)
[2017-12-03 05:40] LABS: Albumin 3.1 g/dL (3.2-5.5); Bilirubin Total 1.7 mg/dL (0.3-1.2); Magnesium 1.7 mg/dL (1.8-2.5); Potassium 3.6 mEq/L (3.6-5.0); Protein, Total 5.7 g/dL (6.0-8.3)
[2017-12-03] MEDS: KETOROLAC 30 MG/ML INJ IV PRN (06:18)
[2017-12-03] MEDS ORDERED: MAGNESIUM SULFATE 1 gm IVPB 1 GM/100 ML BAG IV ONE (08:06)
[2017-12-03] MEDS ORDERED: KCL 20 MEQ/100 mL IVPB 20 MEQ/100 ML BAG IV SCH (09:00)
[2017-12-03] MEDS ORDERED: Ringers Lactate 1,000 ML IV ONE ×2 (13:59→15:35)
--- NOTE | 2017-12-03 14:51 | P.BOP ---
Preoperative diagnosis: acute cholecystitis, symptomatic cholelithiasis, s/p MRCP Postoperative diagnosis: same Primary procedure: Laparoscopic cholecystectomy Estimated blood loss: <10cc Specimen: gb Findings: as above Anesthesia: General Complications: None Transferred to: Recovery Room
[2017-12-03] MEDS ORDERED: ROCURONIUM 50 MG/5 ML VIAL IV ONE (14:57)
[2017-12-03] MEDS ORDERED: PROPOFOL 200 MG/20 ML VIAL IV ONE (14:57)
[2017-12-03] MEDS ORDERED: FENTANYL CITR 100 MCG/2 ML ONE ×2 (14:57→15:24)
[2017-12-03] MEDS ORDERED: LIDOCAINE 1% MPF 5 ML VIAL ONE (14:58)
[2017-12-03] MEDS ORDERED: MIDAZOLAM HCL 2 MG/2 ML INJ ONE (14:58)
[2017-12-03] MEDS ORDERED: GLYCOPYRROLATE 0.2 MG/ML SYR ONE ×3 (15:13→15:47)
[2017-12-03] MEDS ORDERED: KETOROLAC 30 MG/ML INJ ONE (15:14)
[2017-12-03] MEDS ORDERED: ONDANSETRON 4 MG/2 ML VIAL ONE (15:14)
[2017-12-03] MEDS ORDERED: NEOSTIGMINE 1 MG/ML -5 ML SYRINGE ONE (15:22)
[2017-12-03] MEDS ORDERED: DEXAMETHASONE 10 MG/ML VIAL ONE (15:22)
[2017-12-03] MEDS ORDERED: MORPHINE 2 MG/ML SYR IV PRN (15:56)
[2017-12-03] MEDS ORDERED: HYDROCODONE/APAP 7.5/325 MG TAB PO PRN (15:56)
[2017-12-03] MEDS: HYDROCODONE/APAP 7.5/325 MG TAB PO PRN ×2 (16:42→21:47)
[2017-12-03] MEDS ORDERED: MORPHINE 4 MG/ML SYR IV PRN (19:00)
--- NOTE | 2017-12-04 01:41 | DS ---
Consultants: Dr. Jean. Procedures: On 12/03/2017, laparoscopic cholecystectomy. Admitting Diagnosis: Acute cholecystitis. Discharge Diagnoses: 1.Acute cholecystitis, status post laparoscopic cholecystectomy. 2.Obesity, body mass index 35.9. 3.Elevated liver enzymes, likely fatty infiltration versus cholelithiasis, improving. Hospital Course: The patient is a 27-year-old female, who came into the hospital with abdominal pain , nausea, and vomiting. The patient was found to have acute cholecystitis and cholelithiasis. Abdom inal ultrasound was done which showed some cholelithiasis. MRCP was done to rule out choledocholithi asis and was negative. Dr. Jean with General Surgery was consulted. The patient was taken for l aparoscopic cholecystectomy and tolerated the procedure well. The patient's diet was advanced. She did well postoperatively, was able to tolerate her diet, able to ambulate, and did not have any nause a or vomiting. The patient was then cleared for discharge from surgical standpoint. She was sent ho [place] in a stable condition. Activity: As tolerated. No lifting more than 10 pounds. No driving or operating heavy machinery wh ile on narcotics. Diet: Heart healthy. Medications: As per medication reconciliation list. Physical Examination: General: Awake, alert, oriented, no acute distress. CV: S1, S2. No murmurs. Respiratory: Moving air well bilaterally. No wheezing. Abdomen: Soft, nontender, and nondistended. Positive bowel sounds. Incisions are clean, dry, and i ntact. Extremities: No clubbing, cyanosis, or edema. Neurologic: Nonfocal. SA/MODL Voice ID: [id number] Report ID: [id number]
[2017-12-04] MEDS: PIPER/TAZO/NS 3.375gm 3.375 GM/100 ML BAG IVPB SCH (01:55)
[2017-12-04] MEDS: HYDROCODONE/APAP 7.5/325 MG TAB PO PRN ×2 (02:11→07:17)
--- NOTE | 2017-12-04 13:12 | P.PN ---
Date of Service: 12/04/17 Patient was discharged yesterday however did not leave until 4:00 a.m.
--- NOTE | 2017-12-08 23:49 | OP ---
Date of Procedure: 12/03/2017 Surgeon: Serg Jean MD Preoperative Diagnoses: Acute cholecystitis, symptomatic cholelithiasis, status post magnetic resona nce cholangiopancreatography, right upper quadrant pain. Postoperative Diagnoses: Acute cholecystitis, symptomatic cholelithiasis, status post magnetic reson ance cholangiopancreatography, right upper quadrant pain. Procedure: Laparoscopic cholecystectomy. Estimated Blood Loss: Less than 10 cc. Specimen: Gallbladder. Anesthesia: General plus local. Indications: This is the case of a female, who came to us with a right upper quadrant tenderness, fo und to have mild elevation of the LFTs so MRCP was done showing no stones in the common bile duct. T he patient also diagnosed with acute cholecystitis, symptomatic cholelithiasis. Fully explained the benefits, alternatives, and risks of laparoscopic, possible open cholecystectomy which include, but n ot limited to infection, bleeding, damage to adjacent structures anesthesia complication, choledochol ithiasis, bile leak, pancreatitis, GA, and even . She also understands this may not relieve any symptoms. She might need more than one surgical intervention. She understood. Signed a consent. Description Of Procedure: The patient was brought to the operating room, placed in supine position. Anesthesia was done without complication. Abdominal area was prepped and draped in a sterile fashio n. Marcaine 0.5% injected for local anesthetic, followed by sharp incision of the skin in the infrau mbilical region. Incision was carried down to fascia, which was opened under direct vision. Periton eum was encountered, opened under direct vision. Vicryl #1 placed inside the fascia. Larissa trocar was carefully introduced. No bleeding was obtained. After that, I placed 3 more trocars, 5 mm each one of them in the epigastric and right upper quadrant under direct visualization. The gallbladder l ooked distended so we used an Endo needle under direct visualization and deflated the gallbladder und er direct visualization. After that, needle was removed. A grasper was placed in the fundus of the gallbladder, another grasper in the infundibulum, retracted the gallbladder in the inferolateral fash ion exposing the triangle of Calot and obtaining critical view of safety. The cystic duct and cystic artery were clearly isolated free circumferentially and a connection between those and the gallbladd er was clearly identified. I proceeded to ligate them at least 3 clips proximal, 1 clip distal, liga tion in middle. Same was done with the cystic artery. No bile leak. No bleeding. The gallbladder was removed from liver using Bovie cautery and removed from abdominal cavity using an EndoCatch throu gh the umbilical incision. The area was inspected once again. Clips were intact. No bile leak. No bleeding. At that moment, I proceeded to remove the trocars under direct vision. Deflated pneumope ritoneum. No bleeding. Closed the fascia with #1 Vicryl. Irrigated subcutaneous tissue and closed that with 3-0 chromic and skin approximated. Sponge count and instrument counts were correct. The p atient tolerated the procedure well. The patient was sent to recovery in stable condition. ALEXA/FALLON Voice ID: [id number] Report ID: [id number]
== END 2017-12-04 07:38 | disposition home or self-care (01) ==
LOC: ER 01:06 → ERHOLD 04:43 → 4TH 07:46
PROVIDERS: ADMIT Internal Medicine; ATTEND Internal Medicine
PROC: 0FT44ZZ Resection of Gallbladder, Percutaneous Endoscopic Approach (ICD-10-PCS; principal; 2017-12-03 13:45)
DX: O99.63 Diseases of the digestive system complicating the puerperium (principal); K80.00 Calculus of gallbladder with acute cholecystitis without obstruction; R74.8 Abnormal levels of other serum enzymes; O99.215 Obesity complicating the puerperium; O99.335 Smoking (tobacco) complicating the puerperium; F17.210 Nicotine dependence, cigarettes, uncomplicated
CPT/HCPCS: 36415; 74177; 74181; 76705; 80048; 80053; 80076; 81003; 81015; 81025; 82150; 83690; 83735; 85025; 88304; 96361; 96374; 96375; 99285; G0378; J1100; J2175; J2250; J2405; J2543; J2710; J3010; J3475; J7030; Q9967

== ENCOUNTER 2017-12-07 20:47 | Inpatient (IN) | payer BC ==
[2017-12-07 21:57] LABS: Urine Blood NEGATIVE (NEG); Urine Glucose NEGATIVE (NEG); Urine Protein TRACE (NEG); Urine pH 7.5 (5.0-7.0)
[2017-12-07 22:00] LABS: Absolute Monocytes 0.5 K/uL (0.1-1.3); Absolute Neutrophil 4.3 K/uL (1.8-8.0); Basophils % 0.6 % (0-1.3); Eosinophils % 2.3 % (0-4.4); Hematocrit 40.8 % (36.0-45.0); Lymphocytes % 28.4 % (15.3-44.8); MCH 27.3 pg (27.0-35.0); MCV 84.2 fL (80-100); MPV 10.9 fL (7.6-11.3); Monocytes % 7.8 % (3.3-12.3); RBC Red Blood Cell Count 4.84 M/uL (3.86-4.86)
[2017-12-07 22:09] LABS: Urine Bacteria <20 /HPF (<20); Urine Culture Reflex Order REFLEXED; Urine RBC <5 /HPF (NONE SEEN)
[2017-12-07 22:15] LABS: Bicarbonate 26 mEq/L (21-31); Glucose Level 87 mg/dL (65-120); Lipase 17 U/L (22-51); Potassium 3.5 mEq/L (3.6-5.0); Sodium Level 138 mEq/L (135-145)
[2017-12-07] MEDS ORDERED: NA CHLORIDE 0.9% 1,000 ML ONE (22:18)
[2017-12-07] MEDS ORDERED: MORPHINE 10 MG/ML VIAL ONE (22:24)
[2017-12-07 22:31] LABS: AST/SGOT 172 IU/L (10-42); Albumin 3.6 g/dL (3.2-5.5); Alkaline Phosphatase 198 IU/L (42-121); Amylase Level 27 U/L (28-100); BUN Blood Urea Nitrogen 9 mg/dL (6-20); Bilirubin Direct 2.9 mg/dL (0-0.2); Protein, Total 6.5 g/dL (6.0-8.3)
[2017-12-07 22:34] LABS: ALT/SGPT 550 IU/L (10-60); Bilirubin Total 5.1 mg/dL (0.3-1.2)
--- NOTE | 2017-12-07 23:37 | ER ---
Nurse's Notes [facility] Name: Ruperto Pike Age: 27 yrs Sex: Female : 1990 Arrival Date: 12/07/2017 Time: 20:50 Bed 14 Private MD: Diagnosis: Unspecified jaundice Presentation: 12/07 20:59 Presenting complaint: Patient states: whites of eyes turned yellow today s/p ak1 gallbladder sx 12/03/17 Dr. Jean. Transition of care: patient was not received from another setting of care. Onset of symptoms was December 07, 2017. Care prior to arrival: None. 20:59 Method Of Arrival: Ambulatory ak1 20:59 Acuity: VICKI 4 ak1 Triage Assessment: 21:01 General: Appears in no apparent distress. Behavior is calm, cooperative. ak1 21:01 Pain: Denies pain. ak1 TRANSPORT NURSE: 20:58 4 weeks post vaginal delivery ak1 Historical: - Allergies: 21:00 Demerol; ak1 - Home Meds: 21:00 vits [Active]; ak1 - PMHx: 21:00 None; ak1 - PSHx: 21:00 Cholecystectomy; ak1 - Immunization history:: Adult Immunizations up to date. - Social history:: Smoking status: Patient/guardian denies using tobacco. Screenin:00 Abuse screen: Denies threats or abuse. Denies injuries from another. Nutritional ak1 screening: No deficits noted. Tuberculosis screening: No symptoms or risk factors identified. Fall Risk None identified. Assessment: 21:45 General: Appears in no apparent distress. comfortable, Behavior is calm, cooperative, ao appropriate for age. Pain: Complains of pain in abdomen Pain currently is 5 out of 10 on a pain scale. Neuro: Level of Consciousness is awake, alert, obeys commands, Oriented to person, place, time, situation, Appropriate for age Moves all extremities. Speech is normal, Facial symmetry appears normal. Cardiovascular: Heart tones S1 S2 Capillary refill < 3 seconds Patient's skin is warm and dry. Respiratory: Airway is patent Respiratory effort is even, unlabored, Respiratory pattern is regular, symmetrical. GI: Abdomen is non-distended. GI: Incision look clean and intact. : No signs and/or symptoms were reported regarding the genitourinary system. EENT: No signs and/or symptoms were reported regarding the EENT system. Derm: No signs and/or symptoms reported regarding the dermatologic system. Musculoskeletal: No signs and/or symptoms reported regarding the musculoskeletal system. 22:09 Reassessment: Patient was in pain and wanted to take her own pills. Dr Bhakta was ao notified and gave me an verbal order to medicated patient with Morphine 2mg. Patient has been medicated. 23:18 Reassessment: Patient appears in no apparent distress at this time. Patient and/or ao family updated on plan of care and expected duration. Pain level reassessed. Patient is alert, oriented x 3, equal unlabored respirations, skin warm/dry/pink. Patient denies pain at this time. Patient states feeling better. 12/08 00:15 Reassessment: Patient appears in no apparent distress at this time. Patient and/or ao family updated on plan of care and expected duration. Pain level reassessed. Patient is alert, oriented x 3, equal unlabored respirations, skin warm/dry/pink. Waiting on room assigment. 01:15 Reassessment: Patient appears in no apparent distress at this time. Patient and/or ao family updated on plan of care and expected duration. Pain level reassessed. Patient is alert, oriented x 3, equal unlabored respirations, skin warm/dry/pink. 02:15 Reassessment: Patient appears in no apparent distress at this time. Patient and/or ao family updated on plan of care and expected duration. Pain level reassessed. Patient is alert, oriented x 3, equal unlabored respirations, skin warm/dry/pink. Called report to BALDEMAR Pitts. Patient to be taken to her room. Vital Signs: 12/07 20:58 BP 126 / 84; Pulse 67; Resp 18; Temp 97.9(TE); Pulse Ox 97% on R/A; Weight 86.18 kg ak1 (R); Height 5 ft. 1 in. (154.94 cm) (R); Pain 0/10; 22:11 BP 131 / 81; Pulse 51; Resp 18; Pulse Ox 97% ; Pain 0/10; ao 23:04 BP 134 / 76; Pulse 54; Resp 16; Pulse Ox 100% on R/A; aa1 12/08 00:15 BP 120 / 83; Pulse 52; Resp 14; Pulse Ox 98% on R/A; Pain 0/10; ao 01:15 BP 116 / 82; Pulse 50; Resp 16; Pulse Ox 99% on R/A; Pain 0/10; ao 02:15 BP 115 / 83; Pulse 54; Resp 16; Temp 96.6(O); Pulse Ox 100% on R/A; Pain 0/10; ao 12/07 20:58 Body Mass Index 35.90 (86.18 kg, 154.94 cm) ak1 ED Course: 12/07 20:50 Patient arrived in ED. es 20:58 Arm band placed on Patient placed in an exam room, on a stretcher, Patient notified of ak1 wait time. 21:00 Triage completed. ak1 21:01 Patient has correct armband on for positive identification. Bed in low position. Call ak1 light in reach. Side rails up X 1. Adult w/ patient. 21:04 Sheldon Bhakta MD is Attending Physician. tw4 21:45 Vidal Malik RN is Primary Nurse. ao 21:45 Inserted saline lock: 22 gauge in right forearm, using aseptic technique. Blood ao collected. 23:36 Serg Jean MD is Hospitalizing Provider. tw4 12/08 02:18 No provider procedures requiring assistance completed. Patient admitted, IV remains in ao place. Administered Medications: 12/07 21:45 Drug: NS 0.9% 1000 ml Route: IV; Rate: 125 ml/hr; Site: right antecubital; ao 12/08 00:24 Follow up: IV Status: Infusion continued upon admission ao 12/07 22:08 Drug: morphine 2 mg Route: IVP; Site: right antecubital; ao 12/08 00:23 Follow up: Response: No adverse reaction ao 00:24 Drug: Zosyn 3.375 grams Route: IVPB; Infused Over: 60 mins; Site: right antecubital; ao Outcome: 12/07 23:36 Decision to Hospitalize by Provider. tw4 12/08 02:18 Admitted to Tele accompanied by kimberly, room 406, Report called to BALDEMAR Pitts Condition: stable Instructed on the need for admit. 02:22 Patient left the ED. ao Signatures: Katie Evans RN RN aa1 Rosalba Castro Amber, RN RN ak1 Vidal Malik RN Sheldon Hyde MD MD tw4 Corrections: (The following items were deleted from the chart) 12/07 22:13 22:11 BP 131 / 81; Pulse 51bpm; Resp 98bpm; Pulse Ox 97%; Pain 0/10; ao hollie
--- NOTE | 2017-12-07 23:37 | EDPHYS ---
Physician Documentation [facility] Name: Ruperto Pike Age: 27 yrs Sex: Female : 1990 Arrival Date: 12/07/2017 Time: 20:50 Bed 14 Private MD: ED Physician Sheldon Bhakta HPI: 12/08 02:48 This 27 yrs old Female presents to ER via Ambulatory with complaints of EYES tw4 TURNING YELLOW. 02:48 The patient is experiencing eyes turning yellow. Onset: The symptoms/episode tw4 began/occurred today. Duration: the symptoms are continuous. Aggravated by nothing. Alleviated by nothing. Associated signs and symptoms: Pertinent positives: None. Pertinent negatives: None. Severity of symptoms: At their worst the symptoms were mild in the emergency department the symptoms are unchanged. The patient has not experienced similar symptoms in the past. SOUND CONTROLLER: 12/07 20:58 4 weeks post vaginal delivery ak1 Historical: - Allergies: 21:00 Demerol; ak1 - Home Meds: 21:00 vits [Active]; ak1 - PMHx: 21:00 None; ak1 - PSHx: 21:00 Cholecystectomy; ak1 - Immunization history:: Adult Immunizations up to date. - Social history:: Smoking status: Patient/guardian denies using tobacco. ROS: 12/08 02:48 Constitutional: Negative for fever, chills, and weight loss. tw4 Cardiovascular: Negative for chest pain, palpitations, and edema, Respiratory: Negative for shortness of breath, cough, wheezing, and pleuritic chest pain, Abdomen/GI: Negative for abdominal pain, nausea, vomiting, diarrhea, and constipation, Back: Negative for injury and pain, MS/Extremity: Negative for injury and deformity. Eyes: Positive for icterus, Negative for acute changes, blurry vision, discharge, foreign body sensation, injury or acute deformity, itching, matting, pain, photophobia, redness, swelling, tearing, vision loss. Exam: 02:48 Constitutional: This is a well developed, well nourished patient who is awake, alert, tw4 and in no acute distress. Head/Face: Normocephalic, atraumatic. 02:48 Cardiovascular: Regular rate and rhythm with a normal S1 and S2. No gallops, murmurs, or rubs. Normal PMI, no JVD. No pulse deficits. Respiratory: Lungs have equal breath sounds bilaterally, clear to auscultation and percussion. No rales, rhonchi or wheezes noted. No increased work of breathing, no retractions or nasal flaring. Abdomen/GI: Soft, non-tender, with normal bowel sounds. No distension or tympany. No guarding or rebound. No evidence of tenderness throughout. MS/ Extremity: Pulses equal, no cyanosis. Neurovascular intact. Full, normal range of motion. Neuro: Awake and alert, GCS 15, oriented to person, place, time, and situation. Cranial nerves II-XII grossly intact. Motor strength 5/5 in all extremities. Sensory grossly intact. Cerebellar exam normal. Normal gait. 02:48 Eyes: Periorbital structures: appear normal, Pupils: no acute changes, Extraocular movements: no acute changes, Conjunctiva: normal, Sclera: icterus, is present. Vital Signs: 12/07 20:58 BP 126 / 84; Pulse 67; Resp 18; Temp 97.9(TE); Pulse Ox 97% on R/A; Weight 86.18 kg ak1 (R); Height 5 ft. 1 in. (154.94 cm) (R); Pain 0/10; 22:11 BP 131 / 81; Pulse 51; Resp 18; Pulse Ox 97% ; Pain 0/10; ao 23:04 BP 134 / 76; Pulse 54; Resp 16; Pulse Ox 100% on R/A; aa1 12/08 00:15 BP 120 / 83; Pulse 52; Resp 14; Pulse Ox 98% on R/A; Pain 0/10; ao 01:15 BP 116 / 82; Pulse 50; Resp 16; Pulse Ox 99% on R/A; Pain 0/10; ao 02:15 BP 115 / 83; Pulse 54; Resp 16; Temp 96.6(O); Pulse Ox 100% on R/A; Pain 0/10; ao 12/07 20:58 Body Mass Index 35.90 (86.18 kg, 154.94 cm) ak1 MDM: 12/07 21:04 Patient medically screened. tw4 12/08 02:55 Differential diagnosis: Corneal abrasion of Acute iritis of Data reviewed: vital signs, tw4 nurses notes. Counseling: I had a detailed discussion with the patient and/or guardian regarding: the historical points, exam findings, and any diagnostic results supporting the discharge/admit diagnosis. Physician consultation: Serg Jean MD regarding admission, and will see patient in inpatient room. Admission orders: after a detailed discussion of the patient's condition and case, the admit orders are written by me. 12/07 21:05 Order name: Amylase, Serum; Complete Time: 22:35 tw4 12/07 21:05 Order name: Basic Metabolic Panel; Complete Time: 22:35 tw4 12/07 21:05 Order name: CBC with Diff; Complete Time: 22:35 tw4 12/07 21:05 Order name: Creatinine for Radiology; Complete Time: 22:35 tw4 12/07 21:05 Order name: Hepatic Function; Complete Time: 22:35 tw4 12/07 22:35 Interpretation: Normal except: SGOT 172; SGPT 550; ALK 198; BILIT 5.1; BILID 2.9. tw4 12/07 21:05 Order name: Lipase; Complete Time: 22:35 tw4 12/07 21:05 Order name: Urine Test (obtain specimen); Complete Time: 21:52 tw4 12/07 21:05 Order name: Urine Microscopic Only; Complete Time: 22:35 tw4 12/07 21:55 Order name: Urine Dipstick--Ancillary (enter results); Complete Time: 22:35 em1 12/07 21:55 Order name: Urine --Ancillary (enter results); Complete Time: 22:35 1 12/07 22:10 Order name: Urine Culture [facility] 12/07 21:05 Order name: IV Saline Lock; Complete Time: 21:57 tw4 12/07 21:05 Order name: Labs collected and sent; Complete Time: 21:57 tw4 12/07 21:05 Order name: Urine Dipstick-Ancillary (obtain specimen); Complete Time: 21:52 tw4 Administered Medications: 12/07 21:45 Drug: NS 0.9% 1000 ml Route: IV; Rate: 125 ml/hr; Site: right antecubital; ao 12/08 00:24 Follow up: IV Status: Infusion continued upon admission ao 12/07 22:08 Drug: morphine 2 mg Route: IVP; Site: right antecubital; ao 12/08 00:23 Follow up: Response: No adverse reaction ao 00:24 Drug: Zosyn 3.375 grams Route: IVPB; Infused Over: 60 mins; Site: right antecubital; ao Disposition: 12/07/17 23:36 Hospitalization ordered by Serg Jean for Inpatient Admission. Preliminary diagnosis is Unspecified jaundice. - Bed requested for Telemetry/MedSurg (Inpatient). - Status is Inpatient Admission. ao - Condition is Fair. - Problem is new. - Symptoms are unchanged. UTI on Admission? No Signatures: Dispatcher [employer] EDMS Tess Haywood RN RN Jessi Ervin RN RN ak1 Vidal Malik RN RN Sheldon Angel MD MD tw4
[2017-12-08] MEDS ORDERED: PIPER/TAZO/NS 3.375gm 3.375 GM/100 ML BAG ONE (00:32)
[2017-12-08] MEDS ORDERED: ACETAMINOPHEN 500 MG TAB PO PRN (00:32)
[2017-12-08] MEDS ORDERED: DIPHENHYDRAMINE 50 MG/ML VIAL IV ONE (03:21)
[2017-12-08] MEDS: NA CHLORIDE 0.9% 1,000 ML IV SCH ×3 (03:38→20:06)
[2017-12-08] MEDS: CODEINE 30MG/APAP 300MG TAB PO PRN (14:31)
[2017-12-08] MEDS: CIPROFLOXACIN 400mg IV 400 MG/200 ML BAG IV SCH ×2 (14:33→20:06)
[2017-12-09] MEDS: NA CHLORIDE 0.9% 1,000 ML IV SCH ×3 (03:00→19:00)
[2017-12-09] MEDS: CODEINE 30MG/APAP 300MG TAB PO PRN (04:33)
--- NOTE | 2017-12-09 04:40 | HP ---
Date of Admission: 12/08/2017 Reason For Service: Hyperbilirubinemia. History Of Present Illness: This is a case of a 27-year-old patient known by us in the past due to h istory of acute cholecystitis. The patient has also asymptomatic cholelithiasis. Previously, the heath castro had surgery done about a week ago. She says she was vomiting and salivating, and she decided t o come to the ER earlier this morning and found to have been jaundiced. The patient prior to laparos copic cholecystectomy, had an MRCP done to rule out gallstones inside the common bile duct and at blue t moment, revealed no gallstones. The patient is awake and alert. She is not in any distress; but o nce in the ER they saw the hyperammonemia, they admitted the patient to the hospital and asked me for evaluation, and we admitted the patient to the hospital for further workup. The patient denies any dysuria, hematuria, hematochezia, or melena. The patient denies any falls. Past Medical History: See my previous consult. Past Surgical History: See my previous consult. Allergies: SEE MY PREVIOUS CONSULT. Social Habits: See my previous consult. Family History: See my previous consult. Review of Systems: Constitutional: Denies any fever or any chills. Respiratory: Denies any shortness of breath. Genitourinary: Denies any dysuria or hematuria. Gastrointestinal: Mild epigastric pain today, although last night there was no pain, but the patient has some jaundice. Physical Examination: General: The patient is awake and alert. HEENT: Pupils are equal and reactive. Icteric. Neck: Supple. No JVD. Chest: Clear. Bilateral breath sounds. Abdomen: Soft and depressible. No guarding or rebound. Intact surgical site. Extremities: Good capillary refill. Breasts: Deferred. Pelvic: Deferred. Rectal: Deferred. Neurologic: No gross motor or sensory deficit. Laboratory Data: WBC count is 7, with hemoglobin of 13.2, and platelets of 211. Potassium 3.5, bili wynn 5.1, with AST 172, ALT 550, alkaline phosphatase 198, amylase 27, and lipase 17. Urine pregnan cy negative. Assessment And Plan: A 27-year-old patient with hyperbilirubinemia. We will consult Dr. Hodge's group with Dr. Borges's group for an endoscopic retrograde cholangiopancreatography in this patient. T he patient was fully explained the differential diagnosis. KONSTANTIN Voice ID: [id number]
[2017-12-09 05:22] LABS: Absolute Lymphocytes (CBC) 2.1 K/uL (0.7-4.9); Absolute Monocytes 0.5 K/uL (0.1-1.3); Absolute Neutrophil 2.8 K/uL (1.8-8.0); Basophils % 0.9 % (0-1.3); Eosinophils % 2.9 % (0-4.4); Hematocrit 41.3 % (36.0-45.0); Lymphocytes % 37.8 % (15.3-44.8); MCH 27.2 pg (27.0-35.0); MCV 84.2 fL (80-100); MPV 10.6 fL (7.6-11.3); Monocytes % 9.4 % (3.3-12.3)
[2017-12-09 05:34] LABS: BUN Blood Urea Nitrogen 7 mg/dL (6-20); Bicarbonate 26 mEq/L (21-31); Glucose Level 95 mg/dL (65-120); Potassium 3.8 mEq/L (3.6-5.0); Sodium Level 140 mEq/L (135-145)
[2017-12-09] MEDS ORDERED: GENTAMICIN SULF 80 MG/2ML INJ ONE (08:40)
[2017-12-09] MEDS ORDERED: GLUCAGON 1 MG/VIAL ONE (08:40)
[2017-12-09] MEDS: CIPROFLOXACIN 400mg IV 400 MG/200 ML BAG IV SCH ×2 (09:29→21:07)
[2017-12-09] MEDS ORDERED: ONDANSETRON 4 MG/2 ML VIAL IV PRN (12:03)
[2017-12-09] MEDS ORDERED: MORPHINE 4 MG/ML SYR IV PRN (12:04)
[2017-12-09] MEDS ORDERED: MIDAZOLAM HCL 2 MG/2 ML INJ ONE (14:06)
[2017-12-09] MEDS ORDERED: LIDOCAINE 1% MPF 5 ML VIAL ONE (14:06)
[2017-12-09] MEDS ORDERED: PROPOFOL 200 MG/20 ML VIAL IV ONE ×4 (14:06→15:00)
[2017-12-09] MEDS ORDERED: Ringers Lactate 1,000 ML IV ONE (14:19)
[2017-12-09] MEDS ORDERED: GLYCOPYRROLATE 0.2 MG/ML SYR ONE (14:44)
--- NOTE | 2017-12-09 15:36 | RAD REPORT ---
EXAM DESCRIPTION: Fluoroscopy for ERCP CLINICAL HISTORY: Abdominal pain FINDINGS: Fluoroscopic images submitted from ERCP procedure. Details and diagnostic findings of the procedure are not available.
[2017-12-09] MEDS ORDERED: MORPHINE 4 MG/ML SYR ONE (15:40)
[2017-12-10] MEDS: CODEINE 30MG/APAP 300MG TAB PO PRN (00:39)
[2017-12-10 04:39] LABS: Bilirubin Direct 0.6 mg/dL (0-0.2); Bilirubin Total 2.6 mg/dL (0.3-1.2)
[2017-12-10] MEDS: NA CHLORIDE 0.9% 1,000 ML IV SCH ×2 (05:15→11:00)
[2017-12-10] MEDS: CIPROFLOXACIN 400mg IV 400 MG/200 ML BAG IV SCH (09:05)
--- NOTE | 2017-12-10 09:39 | P.DS ---
Admission Date: 12/08/17 Discharge Date: 12/10/17 Disposition: ROUTINE DISCHARGE Discharge Condition: GOOD Hospital Course: unremarkable Vital Signs/Physical Exam: Temp Pulse Resp BP Pulse Ox 98.0 F 57 16 126/79 96 12/10/17 08:00 12/10/17 08:00 12/10/17 08:00 12/10/17 08:00 12/10/17 08:00 General: Alert, In no apparent distress, Oriented x3, Cooperative HEENT: PERRLA, EOMI Neck: Supple Respiratory: Normal air movement Cardiovascular: No edema, Normal pulses Gastrointestinal: Soft and benign Laboratory Data at Discharge: WBC 5.6 K/uL (4.3-10.9) D 12/09/17 04:54 Hgb 13.3 g/dL (12.0-15.0) 12/09/17 04:54 Hct 41.3 % (36.0-45.0) 12/09/17 04:54 Plt Count 195 K/uL (152-406) 12/09/17 04:54 Sodium 140 mEq/L (135-145) 12/09/17 04:54 Potassium 3.8 mEq/L (3.6-5.0) 12/09/17 04:54 BUN 7 mg/dL (6-20) 12/09/17 04:54 Creatinine 0.66 mg/dL (0.44-1.00) 12/09/17 04:54 Glucose 95 mg/dL (65-120) 12/09/17 04:54 Total Bilirubin 2.6 mg/dL (0.3-1.2) H 12/10/17 03:48 AST 98 IU/L (10-42) H 12/10/17 03:48 ALT 350 IU/L (10-60) H* D 12/10/17 03:48 Alkaline Phosphatase 198 IU/L (42-121) H 12/07/17 21:45 Amylase 27 U/L (28-100) L 12/07/17 21:45 Lipase 17 U/L (22-51) L 12/07/17 21:45 Home Medications: Amox/Clavulanate [Augmentin 875-125 Tab] 875 mg PO BID #10 tab 12/03/17 Codeine/APAP [Tylenol W/Codeine #3 tab] 1 tab PO Q6HP PRN #30 tab 12/03/17 Pnv#75/Iron Fum/FA/Om3/Dha/Epa [One A Day Dha Pack] 325 mg PO DAILY 05/19 Diet: Regular Activity: No lifting more than 10 lbs Followup: Serg Jean MD [ACTIVE - CAN ADMIT] - 1 Week Kat Borges MD [ACTIVE - CAN ADMIT] - 1-2 Weeks
--- NOTE | 2017-12-10 11:40 | P.PN ---
Subjective Date of Service: 12/10/17 Chief Complaint: hyperbilirubinemia, choledocholithiasis (common bile duct stones) Subjective: Improving Review of Systems General: Unremarkable Eyes: As per HPI ENT: Unremarkable Musculoskeletal: Unremarkable Integumentary: Jaundice Physical Examination - Vital Signs Temperature: 98.0 F Blood Pressure: 126/79 Pulse: 57 Respirations: 16 Pulse Ox (%): 96 - Physical Exam General: Alert, In no apparent distress, Oriented x3 HEENT: PERRLA, Scleral icterus Neck: Supple Respiratory: Normal air movement Cardiovascular: No edema Gastrointestinal: Soft and benign, No rebound, No guarding Musculoskeletal: No erythema, No tenderness, No warmth Integumentary: No rashes, No erythema, No warmth, No cyanosis Neurological: Normal speech, Cranial nerves 3-12 intact - Studies Microbiology Data (last 24 hrs): 12/07/17 21:45 Clean Catch Urine [place] Count - Final <10,000 CFU/ML. 12/07/17 21:45 Clean Catch Urine - Final Assessment And Plan - Plan ERCP (GI consulted) OOB diet after ERCP
--- NOTE | 2017-12-11 21:34 | CON ---
Reason For Consultation: Obstructive jaundice and pruritus. History Of Present Illness: Ms. Pike is a 27-year-old female, who underwent a cholecystectomy withou t any problem. However, 1 week following this, she started developing yellowish discoloration of her eyes and upper excreta. In addition to that, she started having pruritus. She also had epigastric pain. However pain is not prominent feature at this time. Denies any hematemesis, melena, or hemato chezia. Denies any odynophagia or dysphagia. Pruritus is generalized. Past Medical History: Generally healthy. Past Surgical History: As elaborated above. Family History: Denies any gastrointestinal malignancy in the family. Social History: Only rare alcohol. Psychiatric History: None. Allergies: REVIEWED IN THE CHART. Medications: Reviewed in the chart. Review of Systems: General: No fever, chills. No weight loss, weight gain. Appetite is poor. Pulmonary: No shortness of breath, cough, or expectoration. Cardiac: No palpitation or heart murmur. No orthopnea or dyspnea. Genitourinary: No complaint. GI: As elaborated above. Hepatologic: Denies any past history of jaundice, hepatitis, or any other liver affliction. Neurovascular: None. Neuroendocrine: None. Dermatologic: Generalized pruritus. Physical Examination: General: Young female at this time appears to be jaundiced. No other acute distress noted. Hemodyna monica respiratory profile within normal range. HEENT: Atraumatic, normocephalic. No pallor, but icterus. Oropharyngeal area is clear other than ic terus. Neck: Supple. No lymphadenopathy. Trachea central in position. Chest: Clear to auscultation and percussion. Cardiovascular: Normal S1, S2. No S3, no S4. Abdomen: Soft, nontender, nondistended. However deep palpation reveals epigastric tenderness. No h epatomegaly. No splenomegaly. No ascites. No succussion splash. Extremities: Upper and lower extremities are normal and symmetrical. Neurological: Alert and oriented x3. Intact memory, mentation, and judgment. Can move all parts of extremities without any other problem Diagnostic Data: Reviewed and analyzed and discussed with the patient. MRCP discussed. Impression/plan/recommendation: Ms. Pike is a 27-year-old female with laparoscopic cholecystectomy. Now she has obstructive jaundice. This is probably consistent with choledocholithiasis. The best way to address this will be an ERCP. I have discussed with the patient regarding the indications, contraindications, possible complication s, alternatives of ERCP including, but not limited to the possibility of 5% to 50% incidence of acute pancreatitis, bleeding, tear, perforation, infection, sepsis, need for surgery, need for blood trans fusion, anesthesia related problem including rare fatality. She has good understanding and she is ag reeable and willing to take the risk. RAKAN/FALLON Voice ID: [id number] Report ID: [id number]
--- NOTE | 2017-12-12 10:55 | OP ---
Date of Procedure: 12/10/2017 Surgeon: Kat Borges MD Procedures: 1.ERCP. 2.Papillotomy. 3.Dilation of the papilla. 4.Stone removal. 5.Stent placement, 8.5-[place], 5 cm long. 6.Intraoperative supervision and interpretation of biliary x-ray, fluoroscopy for procedure purpose. Total fluoro time 2.58 minutes. 7.Anesthesia by Department of Anesthesia. Indication: 1.Obstructive jaundice. 2.See my dictation. Complexity: Complex by very nature. Tolerance To Sedation: Excellent. Procedure In Detail: Procedure, possible complications, and alternatives including, but not limited to 5% to 50% incidence of acute pancreatitis, bleeding, tear, perforation, infection, sepsis, need fo r surgery, need for blood transfusion, anesthesia related problem including rare fatality explained t o the patient. Informed consent was obtained. She was placed in left prone position. Through the a nesthetized oropharyngeal area, scope was passed. Esophageal gastric mucosa was not visualized prope rly due to side-view nature of the scope and its inherent limitation of visualization. However, major and minor papilla appeared to be within normal range in duodenal part 2. Selective ca nnulation of the pancreatic duct was obtained. Pancreatic duct was normal in head, neck, body, and t ail area. No filling defects noted. Selective cannulation of the common bile duct could not be achieved. As a result, a precut needle-kn taras access papillotomy was done and after this, selective cannulation was obtained. Distally, common bile duct was upper border of dilation and in common bile duct and common hepatic duct, multiple sonia ling defects noted. Intrahepatic ducts were normal. Right and left hepatic ducts were normal. Cyst ic duct or remnant of its normal. No leakage noted. At this time, a 2 mm papillotomy was done that was eventually dilated. By serial passage of the ball oon, stone was removed 2-3 mm. Good drainage was not obtained. Still, it could be due to edema or due to small stones that are not seen on this exam. As a result, stent was placed 8.5-[place] 5 cm. Good drainage noted. Immediate d ecompression noted. Having done the above procedure in a safe, diligent, and satisfactory manner, endoscope and rest of t he endoscopic accessories were removed. The patient's oropharyngeal area cleaned out in a respectful manner. The patient has been sent in excellent condition to postop recovery, from there to the [facility]. Impression: Choledocholithiasis. Plan: 1.Follow up in office. 2.Stent will be removed in 6 to 8 weeks' time. Also if there is any retained stone, at that time it will be removed. Disposition: Back to the floor and if she tolerates diet, she will be sent home from there tomorrow. Complications: None. The patient tolerated the procedure well. RAKAN/FALLON Voice ID: [id number] Report ID: [id number]
== END 2017-12-10 11:58 | disposition home or self-care (01) | DRG 446 ==
LOC: ER 20:47 → ERHOLD 12-08 00:11 → 4TH 12-08 02:08
PROVIDERS: ADMIT Surgery; ATTEND Surgery
PROC: 0FC98ZZ Extirpation of Matter from Common Bile Duct, Via Natural or Artificial Opening Endoscopic (ICD-10-PCS; principal; 2017-12-10)
PROC: 0F798DZ Dilation of Common Bile Duct with Intraluminal Device, Via Natural or Artificial Opening Endoscopic (ICD-10-PCS; 2017-12-10)
DX: K80.50 Calculus of bile duct without cholangitis or cholecystitis without obstruction (principal)
CPT/HCPCS: 36415; 80048; 80076; 81003; 81015; 81025; 82150; 82247; 82248; 83690; 84450; 84460; 85025; 87086; 87088; 96361; 96374; 96375; 99285; C1769; C2625; J0744; J1580; J1610; J2250; J2543; J7030